=== PATIENT | female | born 1980 | race Caucasian/White ===

== ENCOUNTER 2020-12-18 06:06 | Day surgery (SDC) | payer MEDICAID, OTHER ==
--- NOTE | 2020-12-14 13:23 | PCM.PREANE ---
Preanesthetic Assessment - Procedure Proposed Procedure: Carpal Tunnel Release Left hand and Right wrist steroid injection. - Anesthesia/Transfusion/Family Hx Anesthesia History: Prior Anesthesia Without Reaction Family History of Anesthesia Reaction: No Transfusion History: No Prior Transfusion(s) Intubation History: Unknown - Review of Systems General: No Symptoms Pulmonary: No Symptoms (Smoker: less than 1ppd times 24 years) Cardiovascular: No Symptoms (HTN/improved), Dyspnea on Exertion Gastrointestinal: No Symptoms Neurological: No Symptoms (History of 2 back surgeries and chronic lower back pain/pain 5/10 and left wrist pain 4/10), Headache (Migraines), Numbness (left hand), Tingling (right foot) Other: Reports: Easy Bruising - Physical Assessment NPO Status Date: 12/17/20 NPO Status Time: 23:45 Vital Signs: HR:87 Sat:96% Temp:98.3 Resp:14 B/P:128/86 Height: 1.73 m Weight: 73 kg ASA Class: 2 Mental Status: Alert & Oriented x3 Airway Class: Mallampati = 2 Dentition: Reports: Normal Dentition, Caries Thyro-Mental Finger Breadths: 3 Mouth Opening Finger Breadths: 3 ROM/Head Extension: Full Lungs: Clear to Auscultation, Normal Respiratory Effort Cardiovascular: Regular Rate, Regular Rhythm, No Murmurs - Imaging/EKG Impressions: EKG: SR rate=83, mild T wave flattening V2 and V3. - Allergies Allergies/Adverse Reactions: Allergies Allergy/AdvReac Type Severity Reaction Status Date / Time No Known Allergies Allergy Verified 12/18/20 06:01 - Anesthesia Plan Pre-Op Medication Ordered: None - Acknowledgements Anesthesia Type Planned: MAC (Local/MAC) Pt an Appropriate Candidate for the Planned Anesthesia: Yes Alternatives and Risks of Anesthesia Discussed w Pt/Guardian: Yes Pt/Guardian Understands and Agrees with Anesthesia Plan: Yes PreAnesthesia Questionnaire - HOME MEDS Home Medications: Home Meds Acetaminophen/HYDROcodone [[place] 325-5 MG] 1 - 2 tab PO Q6H PRN #5 tablet 12/18/20 [Rx]
[~2020-12-18 06:06] MED LIST: Lactated Ringers 1,000 ML IV SCH; Lidocaine 1%/Sod Bicarbonate in NS 8.4% 1 ML Syringe IDERM PRN; Sodium Chloride 0.9% 10 ML Syringe FLUSH PRN
[2020-12-18] MEDS ORDERED: Bupivacaine 0.25% 10 ML SDV ONE ×2 (06:18→06:36)
[2020-12-18] MEDS ORDERED: Lidocaine 1% 30 ML SDV ONE (06:18)
[2020-12-18] MEDS ORDERED: Lidocaine 1% 4 ML ONE (06:22)
[2020-12-18] MEDS ORDERED: Ondansetron 4 MG/2 ML SDV ONE (06:22)
[2020-12-18] MEDS ORDERED: Midazolam 1 MG/ML 2 ML SDV ONE (06:23)
[2020-12-18] MEDS ORDERED: fentaNYL 100 MCG/2 ML SDV ONE (06:23)
[2020-12-18] MEDS ORDERED: Propofol 200 MG/20 ML SDV ONE (06:23)
[2020-12-18] MEDS ORDERED: Triamcinolone Acetonide 40 MG/ML 1 ML SDV ONE (06:36)
[2020-12-18] MEDS ORDERED: fentaNYL 100 MCG/2 ML SDV IVPUSH PRN (07:15)
[2020-12-18] MEDS ORDERED: Ondansetron 4 MG/2 ML SDV IVPUSH PRN (07:15)
[2020-12-18] MEDS ORDERED: diphenhydrAMINE 50 MG/ML SDV IVPUSH PRN (07:15)
[2020-12-18] MEDS ORDERED: HYDROmorphone 0.5 MG/0.5 ML Syringe IVPUSH PRN (07:15)
--- NOTE | 2020-12-18 07:41 | PCM.OPNOTE ---
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
--- NOTE | 2020-12-18 07:47 | PCM48HPAN ---
Post Anesthesia Note - EVALUATION WITHIN 48HRS OF ANESTHETIC Vital Signs in Normal Range: Yes Patient Participated in Evaluation: Yes Respiratory Function Stable: Yes Airway Patent: Yes Cardiovascular Function Stable: Yes Hydration Status Stable: Yes Pain Control Satisfactory: Yes Nausea and Vomiting Control Satisfactory: Yes Mental Status Recovered: Yes Vital Signs: Last Vital Signs Temp 98.3 12/18/20 0740 Pulse 82 12/18/20 0740 Resp 10 12/18/20 0740 BP 98/57 12/18/20 0740 Pulse Ox 96% 12/18/20 0740
--- NOTE | 2020-12-20 10:33 | OR ---
DATE OF OPERATION: 12/18/2020 SURGEON: Adam Clayton MD OPERATION PERFORMED: Left carpal tunnel release with right wrist steroid injection. PREOPERATIVE DIAGNOSIS: Left median nerve compression neuropathy and right wrist pain. POSTOPERATIVE DIAGNOSIS: Left median nerve compression neuropathy and right wrist pain. ANESTHESIA: Local MAC. ANESTHESIA PROVIDER: Kathy Escalante [employer] ATTENDANT: Judy Mcallister PA-C ESTIMATED BLOOD LOSS: Less than 5 mL. COMPLICATIONS: None. CONDITION: Stable. DESCRIPTION OF PROCEDURE: The patient was identified in the preop holding area. Proper site was marked and identified by the surgeon. The patient was taken back to the operating theater where after adequate anesthesia, the patient's left upper extremity was sterilely prepped and draped in the usual sterile fashion. OR time-out was performed. The patient did not receive antibiotics and it is not indicated for soft tissue hand procedure. At this time, the left upper extremity was exsanguinated and an Esmarch was used as a tourniquet on the forearm. At this time, using 1% lidocaine without epinephrine and 0.25% Marcaine without epinephrine, the palmar cutaneous branch of the median nerve was anesthetized and then the incisional site was anesthetized using Rockwell cardinal line and ulnar border of the fourth digit as reference. Once this had set up, an incision was made. Blunt dissection was taken down to the palmar cutaneous fascia. Palmar cutaneous fascia was incised with a [employer] [place] blade. At this time, the transverse carpal ligament was identified. A small rent was made in the transverse carpal ligament with a [employer] [place] blade under direct visualization. Resection of the transverse carpal ligament was done distally using tenotomy scissors making sure to stop short of the palmar arch. At this time, attention was turned proximally after it was found to be adequately released. Using the tenotomy scissors keeping the tips ulnar to protect the palmar cutaneous branch of the median nerve, the superficial forearm fascia as well as the transverse carpal ligament were resected proximally. It was found to be adequate release both proximally and distally. At this time, adequate saline was irrigated through the wound. 4-0 nylon sutures were used closure of the skin. The patient was placed in a sterile soft dressing. After that was completed, under sterile technique, 1 mL of 40 mg Kenalog and 2 mL of 0.25% Marcaine were injected to the right wrist intra-articularly. The patient tolerated all procedures well, sent to PACU in stable condition. MMODAL /[id number]
== END 2020-12-18 09:33 | disposition home or self-care (01) ==
LOC: JD.SDS 06:06
PROVIDERS: ATTEND Orthopaedic Surgery
DX: G56.12 Other lesions of median nerve, left upper limb (principal); M25.531 Pain in right wrist; F17.210 Nicotine dependence, cigarettes, uncomplicated; Z91.018 Allergy to other foods; Z91.048 Other nonmedicinal substance allergy status; Z79.899 Other long term (current) drug therapy; Z98.890 Other specified postprocedural states
CPT/HCPCS: 20605; 64721; 81025; J2250; J2405; J2704; J3010; J3301; J3490; J7120; 01810

== ENCOUNTER 2023-01-02 10:11 | Day surgery (SDC) | payer MEDICAID ==
[~2023-01-02 10:11] MED LIST changes: +Sodium Chloride 0.9% 10 ML Syringe FLUSH SCH
[2023-01-02] MEDS ORDERED: Bupivacaine 0.25% 10 ML SDV ONE (11:03)
[2023-01-02] MEDS ORDERED: Propofol 200 MG/20 ML SDV ONE (11:39)
[2023-01-02] MEDS ORDERED: fentaNYL 100 MCG/2 ML SDV ONE ×2 (11:39→12:56)
[2023-01-02] MEDS ORDERED: Lidocaine 1% 4 ML ONE (11:39)
[2023-01-02] MEDS ORDERED: ceFAZolin 2 GM Vial ONE (12:12)
[2023-01-02] MEDS ORDERED: Ketorolac 30 MG/ML SDV ONE (12:32)
[2023-01-02] MEDS ORDERED: Dexamethasone 4 MG/ML 5 ML MDV ONE (12:32)
[2023-01-02] MEDS ORDERED: Ondansetron 4 MG/2 ML SDV ONE (12:32)
[2023-01-02] MEDS ORDERED: Ondansetron 4 MG/2 ML SDV IVPUSH PRN (13:15)
[2023-01-02] MEDS ORDERED: HYDROmorphone 0.5 MG/0.5 ML Syringe IVPUSH PRN (13:15)
[2023-01-02] MEDS ORDERED: fentaNYL 100 MCG/2 ML SDV IVPUSH PRN (13:15)
[2023-01-02] MEDS ORDERED: Acetaminophen/HYDROcodone 325-10 MG Tab PO PRN (13:37)
== END 2023-01-02 14:28 | disposition home or self-care (01) ==
LOC: JD.SDS 10:11
PROVIDERS: ATTEND Orthopaedic Surgery
DX: T84.84XA Pain due to internal orthopedic prosthetic devices, implants and grafts, initial encounter (principal); M71.58 Other bursitis, not elsewhere classified, other site; L02.421 Furuncle of right axilla; F17.290 Nicotine dependence, other tobacco product, uncomplicated; F17.210 Nicotine dependence, cigarettes, uncomplicated; Z79.899 Other long term (current) drug therapy
CPT/HCPCS: 20680; 87641; A9270; J0690; J1100; J1885; J2405; J2704; J3010; J3490; J7120; 01740